=== PATIENT | female | born 1985 | race Two or more races ===

== ENCOUNTER 2022-12-22 06:14 | Emergency (ER) | payer OTHER ==
[~2022-12-22] VITALS: Ht 167.6 cm; Wt 111.1 kg
[2022-12-22] MEDS ORDERED: PRENA1 TRUE CO1 EACH (06:19)
== END 2022-12-22 09:28 | disposition home or self-care (01) ==
LOC: ER 06:14
DX: O99.611 Diseases of the digestive system complicating pregnancy, first trimester (principal); Z3A.12 12 weeks gestation of pregnancy; R11.10 Vomiting, unspecified

== ENCOUNTER 2023-06-30 11:30 | Inpatient (IN) | payer OTHER ==
[~2023-06-30] VITALS: Ht 167.6 cm; Wt 3.2 kg
[~2023-06-30 11:30] MED LIST: PRENA1 TRUE CO1 EACH
[2023-06-30 13:56] LABS: URINE APPEARANCE Cloudy; URINE BILIRRUBIN Negative (NEGATIVE); URINE BLOOD Negative; URINE COLOR Yellow; URINE GLUCOSE Negative (NEGATIVE); URINE LEUKOCYTE Trace; URINE NITRATE Negative; URINE PROTEIN Negative (NEGATIVE)
[2023-06-30 14:00] LABS: URINE BACTERIA 2246.4 uL (0.0-1933); URINE RBC 6.1 uL (0.0-20.8); URINE WBC 46.8 uL (0.0-23.2)
[2023-06-30 14:01] LABS: HEMATOCRIT 36.2 % (36.0-45.00); HEMOGLOBIN 12.1 g/dL (12.0-15.00); MEAN CELL VOLUME 87.9 fL (80.00-100.00); MEAN CORPUSCULAR HEMOGLOBIN 29.3 pg (27.00-32.0); MEAN CORPUSCULAR HGB CONC 33.3 g/dl (32.0-36.0); PLATELET COUNT 245 K/uL (150-450); RED BLOOD COUNT 4.12 M/uL (4.00-6.00); RED CELL DISTRIBUTION WIDTH 14.8 % (11.5-14.5)
[2023-06-30 14:08] LABS: URINE CRYSTALS FEW /HPF
[2023-06-30 14:23] LABS: ALBUMIN 2.4 gm/dL (3.4-5.0); BILIRUBIN TOTAL 0.28 mg/dL (0.3-1.2); CALCIUM 8.6 mg/dL (8.5-10.1); CREATININE SERUM 0.6 mg/dL (0.55-1.02); GFR 112.49; POTASSIUM 4.55 mEq/L (3.5-5.1); TOTAL PROTEIN 6.4 gm/dL (6.4-8.2)
[2023-06-30] MEDS ORDERED: ECOTRIN81 MG PO (14:31)
[2023-06-30 14:35] LABS: INR < 0.93; PARTIAL THROMBOPLASTIN TIME 25.3 SECONDS (22.0-34.0); PROTHROMBIN TIME 9.2 SECONDS (9.0-11.5)
[2023-07-06 13:57] LABS: ABG PH 7.225 (7.35-7.45); ABG PO2 15.4 mmHg (80-100); ABG pCO2 59.4 mmHg (35-45); BASE EXCESS -4.6 mmol/l; BICARBONATE 24.1 mmol/l (23-25); SaO2 13.9 %; Tco2 25.9 mmol/l; o2 21 %
[2023-07-06 18:33] LABS: HEMATOCRIT 35.4 % (36.0-45.00); HEMOGLOBIN 11.7 g/dL (12.0-15.00); MEAN CELL VOLUME 87.1 fL (80.00-100.00); MEAN CORPUSCULAR HEMOGLOBIN 28.8 pg (27.00-32.0); MEAN CORPUSCULAR HGB CONC 33.1 g/dl (32.0-36.0); PLATELET COUNT 228 K/uL (150-450); RED BLOOD COUNT 4.06 M/uL (4.00-6.00); RED CELL DISTRIBUTION WIDTH 14.8 % (11.5-14.5)
== END 2023-07-09 17:44 | disposition home or self-care (01) | DRG 788 ==
LOC: O/R 07-06 06:15 → OB/GYN 07-06 07:00
PROVIDERS: ADMIT Specialist; ATTEND Specialist
PROC: 4A1HXCZ Monitoring of Products of Conception, Cardiac Rate, External Approach (ICD-10-PCS; 2023-07-06)
PROC: 10D00Z1 Extraction of Products of Conception, Low, Open Approach (ICD-10-PCS; principal; 2023-07-06 07:00)
DX: O32.1XX0 Maternal care for breech presentation, not applicable or unspecified (principal); O99.214 Obesity complicating childbirth; E66.9 Obesity, unspecified; Z3A.39 39 weeks gestation of pregnancy; Z37.0 Single live birth; Z20.822 Contact with and (suspected) exposure to COVID-19

== ENCOUNTER 2023-07-25 22:18 | Emergency (ER) | payer OTHER ==
[~2023-07-25] VITALS: Ht 167.6 cm; Wt 111.6 kg
[~2023-07-25 22:18] MED LIST changes: +ECOTRIN81 MG PO
[2023-07-26] MEDS ORDERED: NORFLEX100MG PO (03:50)
== END 2023-07-26 05:32 | disposition home or self-care (01) ==
LOC: ER 22:19
DX: R10.32 Left lower quadrant pain (principal); K42.9 Umbilical hernia without obstruction or gangrene